=== PATIENT | male | born 1985 | race Caucasian/White ===

== ENCOUNTER 2021-04-17 08:35 | Emergency (ER) | payer OTHER ==
[~2021-04-17] VITALS: Ht 172.7 cm; Wt 77.1 kg
--- NOTE | 2021-04-17 08:42 | NUR ---
PT CAME TO ER C/O L THIGH ABSCESS X 1 WEEK. ADMITS HEADACHE, NAUSEA, VOMITING. AAOX4, AMBULATORY, BREATHING EVEN AND UNLABORED, PULSES 2+ BILATERALLY, ERYTHEMATOUS ABSCESS. PT ASSISTED TO ER BED 4, ON MONITOR, AWAITING MD FOR EVAL.
[2021-04-17] MEDS ORDERED: CLIN300C12 PO (08:51)
[2021-04-17 08:55] VITALS: BP 123/80
== END 2021-04-17 08:56 | disposition home or self-care (01) ==
LOC: ER 08:51
DX: L03.116 Cellulitis of left lower limb (principal)

== ENCOUNTER 2023-01-07 00:41 | Emergency (ER) | payer OTHER ==
[~2023-01-07] VITALS: Ht 175.3 cm; Wt 86.2 kg
[~2023-01-07 00:41] MED LIST: CLIN300C12 PO
[2023-01-07 00:50] VITALS: BP 124/61; TEMP 98.1; O2SAT 98
[2023-01-07] MEDS ORDERED: AZITHROMYCIN 250 MG TABLET PO ONE (01:00)
[2023-01-07] MEDS ORDERED: CEFTRIAXONE 500 MG VIAL IM ONE (01:00)
[2023-01-07] MEDS ORDERED: AZITHROMYCIN 250 MG TABLET ONE (01:14)
[2023-01-07] MEDS ORDERED: CEFTRIAXONE 500 MG VIAL ONE (01:14)
[2023-01-07 02:05] LABS: APPEARANCE,URINE CLEAR (CLEAR); BILIRUBIN,URINE NEGATIVE (NEGATIVE); BLOOD, URINE TRACE-INTA Ery/uL (NEGATIVE); COLOR,URINE YELLOW (YELLOW); KETONES,URINE NEGATIVE (NEGATIVE); LEUKOCYTE ESTERASE ,URINE NEGATIVE (NEGATIVE); NITRITE, URINE NEGATIVE (NEGATIVE); PROTEIN,URINE TRACE mg/dl (NEGATIVE); UGLUCOSE NEGATIVE (NEGATIVE); UROBILINOGEN,URINE 0.2 EU/dL (0.2)
[2023-01-07 02:17] LABS: ADD URINE CULTURE NO; BACTERIA,URINE None seen /HPF (None Seen); SQUAMOUS EPITHELIAL CELL,UR None Seen /HPF (None Seen); WBC,URINE 0-2 /HPF (0-3)
[2023-01-07 02:18] LABS: MUCUS,URINE Few /LPF (None Seen)
[2023-01-08 22:06] LABS: CHLAMYDIA TRACHOMATIS NAA Negative (Negative); NEISSERIA GONORRHOEAE NAA Positive (Negative)
== END 2023-01-07 01:43 | disposition home or self-care (01) ==
LOC: ER 00:43
DX: R30.0 Dysuria (principal); F17.200 Nicotine dependence, unspecified, uncomplicated; Z79.899 Other long term (current) drug therapy; Z60.2 Problems related to living alone
CPT/HCPCS: 99283; 96372; 87086; 81001; 87491; 87591; J0696